=== PATIENT | male | born 1990 | race Caucasian/White ===

== ENCOUNTER → 2017-06-30 | Outpatient (CLI) | payer OTHER ==
[~2017-06-30] MED LIST: VYVANSE50 MG PO
--- NOTE | 2017-06-30 18:09 | Diagnostic Imaging Report ---
PROCEDURE:US TESTICULAR DOPPLER LTD COMPARISON:None. INDICATIONS:Testicular pain FINDINGS:Please see conclusion CONCLUSION:Please see report of testicular ultrasound performed the same date. Dictated by: Abdi Barth M.D. on 06/30/2017 at 18:18 Electronically approved by: Abdi Barth M.D. on 06/30/2017 at 18:18
--- NOTE | 2017-06-30 18:09 | Diagnostic Imaging Report ---
PROCEDURE:US TESTICULAR COMPARISON:None. INDICATIONS:Testicular pain FINDINGS:Grayscale and color flow Doppler ultrasound of the scrotal contents was performed. Spectral waveform analysis of testicular blood flow was performed. Right testicle: 4.1 x 2.2 x 3.5 cm. Homogeneous echogenicity with no mass. Normal appearing arterial and venous blood flow. No hydrocele or varicocele. Right epididymis: Epididymal head measures 1.4 x 0.8-1.0 cm. No hyperemia. Left testicle: 3.8 x 2.3 x 2.8 cm. Homogeneous echogenicity with no mass. Normal appearing arterial and venous blood flow. No hydrocele or varicocele. Left epididymis: Epididymal head measures 1.2 x 0.9 and a 1.0 cm. No hyperemia. Scrotum: No asymmetric scrotal thickening. CONCLUSION:Symmetric appearing homogeneous testicles. No testicular mass or hydrocele. Normal appearing testicular blood flow. Dictated by: Abdi Barth M.D. on 06/30/2017 at 18:18 Electronically approved by: Abdi Barth M.D. on 06/30/2017 at 18:18
== END ==
LOC: US 17:09
PROVIDERS: ATTEND Family Medicine
DX: N50.9 Disorder of male genital organs, unspecified (principal)
CPT/HCPCS: 76870; 93976